=== PATIENT | female | born 1975 | race Caucasian/White ===

== ENCOUNTER → 2016-10-30 | Outpatient (CLI) | payer MEDICAID ==
[~2016-10-30] MED LIST: ALLE10TA PO; COEN400C2 PO; CURCPOW PO; FLUT50SP EACH NARE; LACTCAP8 PO; MSM1000C PO; MULT-65 PO; VITATAB11 PO
[2016-10-30 11:04] LABS: BACTERIA, URINE RARE /hpf; BLOOD, URINE NEG (NEG); COMMENT (UR) CULT NOT INDICATED; CULTURE IF INDICATED CULT NOT INDICATED; GLUCOSE,URINE NEG (NEG); KETONE, URINE NEG (NEG); NITRITE,URINE NEG (NEG); SQUAMOUS EPITHELIAL CELL URINE <1 /hpf (0-5); URINE COLOR YELLOW (YELLW/STRAW)
== END ==
LOC: CPRE 10:07
PROVIDERS: ATTEND Obstetrics & Gynecology Gynecology
DX: Z01.812 Encounter for preprocedural laboratory examination (principal); N90.7 Vulvar cyst
CPT/HCPCS: 36415; 81001; 84703

== ENCOUNTER → 2016-11-07 | Day surgery (SDC) | payer MEDICAID ==
--- NOTE | 2016-10-30 10:31 | MH ---
cc: DAYANNA ZAMBRANO MD DATE OF ADMISSION: 11/07/2016 1975 REASON FOR ADMISSION Scheduled for admission on November 07 for revision of labial cyst. HISTORY OF PRESENT ILLNESS The patient is a 40-year-old white female, 2, para 2, has an issue with a left-sided labial minora cyst that is increasing in size and is symptomatic and painful. She wants to have it removed surgically. PAST MEDICAL HISTORY The patient's medical history is negative for heart, lung, liver disease, hypertension, diabetes, stroke. PAST SURGICAL HISTORY Breast augmentation with complication of MRSA infection, otherwise negative. GYNECOLOGIC HISTORY No history of STDs or abnormal Pap smears. OBSTETRICAL HISTORY Two vaginal deliveries. SOCIAL HISTORY She does not smoke, use alcohol or drugs. FAMILY HISTORY Noncontributory. ALLERGIES None. MEDICATIONS Ackl-yea-irgrbkp supplements. REVIEW OF SYSTEMS As above. No chest pain, orthopnea, PND. No nausea, vomiting, fever, chills. No vaginal bleeding or discharge. PHYSICAL EXAMINATION VITAL SIGNS: On exam she is afebrile. Vital signs are stable. Blood pressure is 120/70, height 5 feet 3 inches, weight is 133, BMI is 23.5. GENERAL: The patient is alert and oriented, in no acute distress. No sign of cognitive dysfunction or depression. HEENT: Within normal limits. NECK: Supple. No JVD. CHEST: Clear. HEART: Regular rate and rhythm. ABDOMEN: Soft, nontender. No hepatosplenomegaly. No CVA tenderness. PELVIC: Exam will be detailed under anesthesia. In the office we note on the left labia minora a 3 cm cyst located near clitoris, otherwise unremarkable pelvic exam. Further exam under anesthesia. EXTREMITIES: Normal skin without rashes. NEURO: Nonfocal. No DVT sign. ASSESSMENT Patient with symptomatic labial cyst, close proximity to clitoris. The patient and I discussed options for management and treatment. She is aware of the risks, benefits and alternatives to planned procedure including damage to surrounding organs, bleeding, infection, pain with intercourse, deformity, scarring, infection. She has made informed choice to proceed. We will use DVT prophylaxis with sequential compression device and antibiotic coverage with 2 grams Ancef. Anticipate outpatient procedure. MD GEOFFREY Barbosa/TLL /10:02 AM /10:13 AM
[~2016-11-07] VITALS: Ht 160 cm; Wt 59.8 kg
[~2016-11-07] MED LIST changes: +*MEPERIDINE 25 MG INJ VIAL PERIprocedural Use ONLY ONE; +BACITRACIN TOP OINT 15 GM TUBE ONE; +BUPIVACAINE HCL PF 0.25% 30 ML VIAL ONE; +BUPIVACAINE/EPINEPHRINE 0.5% PF 10 ML VIAL ONE; +CHLORHEXIDINE GLUCONATE 2 % 1 PACK (2 CLOTHS) TOPICAL PRN; +DO NOT ADM ANY ANTICOAGULANT DRUGS PRN; +HYDROmorphone HCL PF 2 MG/ML VIAL ONE; +INSULIN HUMAN REGULAR 1,000 UNITS/10 ML VIAL SQ PRN; +KETOROLAC TROMETHAMINE 30 MG/ML (IVP) VIAL IV PUSH PRN; +KETOROLAC TROMETHAMINE 60 MG/2 ML (IM) VIAL IM ONE; +KETOROLAC TROMETHAMINE 60 MG/2 ML (IM) VIAL IM PRN; +LACTATED RINGER'S 1000 ML INJ 1,000 ML IV ONE; +LACTATED RINGER'S 1000 ML IV PRN; +METOPROLOL TARTRATE 25 MG TAB PO PRN; +MIDAZOLAM HCL 2 MG/2 ML VIAL ONE; +ONDANSETRON HCL 4 MG/2 ML VIAL IV PUSH ONE; +ONDANSETRON HCL 4 MG/2 ML VIAL IV PUSH PRN; +POVIDONE IODINE 5% (ANTISEPSIS KIT) 4 APPLICATIONS EACH NARE PRN; +PROPOFOL 200 MG/20 ML AMP IV ONE; +SODIUM CHLORID 0.9% 500 ML IV PRN; +SUGAMMADEX SODIUM 200 MG/2 ML VIAL IV PUSH ONE; +ceFAZolin 2 GM PREMIX 50 ML IV SCH; +traMADol HCL 50 MG TAB PO PRN
[2016-11-07 10:24] VITALS: BP 111/68; PULSE 61; RESP 18; TEMP 97.5; O2SAT 100
--- NOTE | 2016-11-10 06:06 | MP ---
cc: DAYANNA ZAMBRANO MD DATE OF PROCEDURE 11/07/2016 PREOPERATIVE DIAGNOSIS Symptomatic vulvar lesion, left side, reba-clitoral. POSTOPERATIVE DIAGNOSIS Symptomatic vulvar lesion, left side, reba-clitoral, with excision of 3-cm sebaceous cyst with complex closure. SURGEON MD Aniket ANESTHESIA Laryngeal mask. BLOOD LOSS 5 cc. URINE OUTPUT 100 cc prior to case. CUSTOMER SUPPORT ASSISTANT [facility] staff x 1. FINDINGS External genitalia with a 3cm cystic lesion, approximately 5 mm from the clitoris on the left side, mobile, not fixed. Remainder of external anatomy normal. POP-Q score: Aa is -1, Ap is 0. Point C is -6. Total vaginal length is 10. Genital hiatus is 8. Perineal body is 6. The uterus is anteverted, mobile. No adnexal mass. SPECIMENS Cyst wall. COMPLICATIONS None. DISPOSITION To [facility] stable. COUNTS Needle and sponge count correct. DRAINS None. ANTIBIOTIC PROPHYLAXIS Ancef 2 grams. DVT PROPHYLAXIS Sequential compression device. TIME-OUT PROCEDURE Per protocol. SUMMARY OF INDICATIONS FOR PROCEDURE The patient with symptomatic labial minora cyst on the left side in close proximity to the clitoris. Although appears to be benign, this was symptomatic and bothersome to the patient and she wanted it removed. It was not amenable to remove in the office secondary to location near the clitoris. PROCEDURE The patient was taken to the operating room theater, prepped and draped in a fashion for the planned procedure. She was in dorsal lithotomy position with careful attention paid to placement of legs in stirrups to avoid undue stress to sensitive neurovascular structures. Above findings noted. Neurovascular integrity documented. The bladder was drained. The upper vulva was infiltrated with a Marcaine solution 0.25% without epinephrine. An incision was made over the cyst. The cyst was excised. The wall was sent for pathology. A small amount of labial tissue was trimmed. Complex closure was performed using 4-0 Vicryl suture. The procedure was concluded. The patient tolerated the procedure well and went to Recover in stable condition. Should the patient have issues with symptomatic pelvic organ prolapse, she would probably be a good candidate for a posterior repair and anterior repair. MD GEOFFREY Barbosa/KIARA /8:48 AM /5:52 AM
== END | disposition home or self-care (01) ==
LOC: HSDC 05:59 → EDUNIT# 08:00
PROVIDERS: ATTEND Obstetrics & Gynecology Gynecology
DX: N90.7 Vulvar cyst (principal)
CPT/HCPCS: 00300; 11423; 13132; 88304; J0690; J1885; J2175; J2250; J2405; J3010; J7120; J1170